=== PATIENT | female | born 1960 | race Caucasian/White ===

== ENCOUNTER 2022-07-23 09:25 | Emergency (ER) | payer MEDICAID ==
[~2022-07-23] VITALS: Ht 162.6 cm; Wt 74.8 kg
--- NOTE | 2022-07-23 21:12 | EKG ---
[facility] [address] [facility] [place] [id number] Signed Sinus bradycardia with sinus arrhythmia Minimal voltage criteria for LVH, may be normal variant ( Sokolow-Davis ) Borderline ECG No previous ECGs available Confirmed by Kirill Steiner MD () on 07/23/2022 9:12:25 PM Electronically Signed By: KIRILL STEINER MD 07/23/222111 PATIENT NAME: PERFECTO AGUSTIN Electrocardiogram DATE OF : 60 PHYSICIAN: KIRILL STEINER MD REPORT #: [id number] REPORT IS CONFIDENTIAL AND NOT TO BE RELEASED WITHOUT AUTHORIZATION
== END 2022-07-23 15:59 | disposition short-term general hospital (02) ==
LOC: ED 09:25
DX: I71.01 Dissection of thoracic aorta (principal); Z88.8 Allergy status to other drugs, medicaments and biological substances; Z20.822 Contact with and (suspected) exposure to COVID-19
CPT/HCPCS: 36415; 71045; 71275; 74177; 80053; 83690; 83735; 84484; 85025; 87502; 93005; 93010; 96375; 96376; 99285-25; A9270; C9803; J2270; J2405; J7060; Q9967; U0003